=== PATIENT | female | born 1945 | race Caucasian/White ===

== ENCOUNTER → 2018-04-22 | Outpatient (CLI) | payer MEDICARE ==
[~2018-04-22] MED LIST: ASPIRIN EC81 M1; ASPIRIN325 PO; ASPIRIN81 M2 PO; ATORVASTATIN CA10 MG PO; CENTRUM SILVER1 EAC4 PO; COLACE 100 MG100 MG; CYMBALTA60 MG PO; DESYREL300 MG PO; DURAGESIC1 EAC2; FENTANYL PATCH75 MCG TP; FENTANYL PATCH75 MCG TRANSDERM; FLEXERIL PO; FOSAMAX 70 MG T70 M1 PO; FOSAMAX 70 MG T70 MG PO; GLIPIZIDE XL5 MG PO; GLUCOPHAGE500 MG PO; GLUCOTROL XL5 MG PO; GLUCOTROL5 MG PO; HYDROCODON-ACE1 EAC5 PO; HYDROXYCHLOROQ200 M1 PO; INDERAL LA 80 M80 MG PO; INDERAL80 MG PO; KEFLEX500 MG PO; LEVAQUIN 500 M500 M1 PO; LIPITOR 10 MG10 M1 PO; LIPITOR10 MG; LIPITOR10 MG PO; LYRICA150 MG PO; MEDROLDOSEPACK PO; METFORMIN HCL500 MG PO; METHOTREXA1 GM/40 M1; METHOTREXA25 MG/1 M7 INJECTION; MIRALAX255 GM; MULTI-VITAMIN1 EAC5; MULTIPLE VITAM1 EACH PO; MULTIVITAMINS PO; MYSOLINE250 M1; MYSOLINE250 M1 PO; MYSOLINE50 MG PO; NEURONTIN 300300 M1; NEURONTIN600 MG PO; NORCO 10-325 T1 EACH PO; ONDANSETRON HCL4 M2 PO; PERCOCET 5-3251 EACH PO; PHENERGAN 25 MG25 MG PO; PREDNISONE 10 M10 M1 PO; PREDNISONE 10 M10 MG PO; PRIMIDONE50 MG PO; PROTONIX40 M1 PO; PROTONIX40 M2 PO; TRAZODONE 150150 M1 PO; TYLENOL325 MG PO; VICODIN ES TAB1 EACH; ZOFRAN4 MG PO
== END ==
LOC: M.MRI 04-20 13:30
DX: M50.323 Other cervical disc degeneration at C6-C7 level (principal); M48.02 Spinal stenosis, cervical region; M25.78 Osteophyte, vertebrae; G89.4 Chronic pain syndrome

== ENCOUNTER 2018-06-30 13:56 | Emergency (ER) | payer MEDICARE ==
[~2018-06-30] VITALS: Ht 157.5 cm; Wt 74.8 kg
[2018-06-30 14:38] LABS: HEMATOCRIT 37.1 % (37.0-47.0); HEMOGLOBIN 12.1 gm/dL (12.0-15.0); MCH 31.1 pg (26.0-34.0); MCHC 32.7 g/dL (28.0-37.0); MCV 95.1 fL (80.0-100.0); MPV 7.7 fl. (7.2-11.1); NUCLEATED RBCS 0 /100WBC; PLATELET COUNT* 258 thou/uL (150-400); RDW-CV 14.3 % (10.5-14.5); WBC 13.6 thou/uL (4.0-11.0)
[2018-06-30 14:53] LABS: CREATININE 0.8 mg/dL (0.6-1.3)
[2018-06-30 14:57] LABS: ALBUMIN 3.6 g/dL (3.4-5.0); TOTAL BILIRUBIN 0.3 mg/dL (<0.1-1.0); TOTAL PROTEIN 7.4 g/dL (6.4-8.2)
[2018-06-30 15:06] LABS: URINE BILIRUBIN NEGATIVE (Negative); URINE BLOOD 1+ (Negative); URINE CLARITY CLEAR; URINE COLOR YELLOW; URINE GLUCOSE-RANDOM NEGATIVE (Negative); URINE KETONES NEGATIVE (Negative); URINE LEUKOCYTES-REFLEX NEGATIVE (Negative); URINE NITRITE-REFLEX NEGATIVE (Negative); URINE PROTEIN NEGATIVE (Negative); URINE UROBILINOGEN 0.2 E.U./dl (0.2-1.0)
[2018-06-30 15:11] LABS: ABSOLUTE LYMPHOCYTES 1.4 thou/uL (0.8-5.3); ABSOLUTE MONOCYTES 1.1 thou/uL (0.0-1.2); ABSOLUTE NEUTROPHILS 11.2 thou/uL (1.6-8.1)
[2018-06-30 15:12] LABS: PLATELET ESTIMATE ADEQUATE
[2018-06-30 15:16] LABS: CASTS None Seen /LPF (None Seen); CRYSTALS None Seen /LPF (None Seen); MUCUS None Seen strn/LPF (None Seen); SQUAMOUS 0-3 Few /LPF (0-3); URINE RBC 3-10 Few /HPF (0-2)
[2018-06-30 15:17] LABS: BACTERIA-REFLEX None Seen /HPF (None Seen); URINE WBC-REFLEX None Seen /HPF (0-5)
[2018-06-30] MEDS ORDERED: MEDROLDOSEPACK PO (17:16)
[2018-06-30 17:29] VITALS: BP 150/90
== END 2018-06-30 17:30 | disposition home or self-care (01) ==
LOC: M.ERS 13:56
PROVIDERS: Nurse Practitioner Family
DX: R51 Headache (principal); M54.5 Low back pain; R42 Dizziness and giddiness; K21.9 Gastro-esophageal reflux disease without esophagitis; E11.9 Type 2 diabetes mellitus without complications; G89.29 Other chronic pain; M54.9 Dorsalgia, unspecified; E78.5 Hyperlipidemia, unspecified; M32.9 Systemic lupus erythematosus, unspecified; F32.9 Major depressive disorder, single episode, unspecified; Z88.6 Allergy status to analgesic agent; Z88.0 Allergy status to penicillin; Z88.5 Allergy status to narcotic agent; Z88.2 Allergy status to sulfonamides

== ENCOUNTER → 2018-07-08 | Outpatient (CLI) | payer MEDICARE ==
--- NOTE | 2018-07-08 17:57 | CARDNUC ---
[place] [address] CARDIAC NUCLEAR IMAGING REPORT Name: ROGELIO MOHAN [id number] Admission: 07/08/18 Attend Phys: Talha Olson, Discharge: Date of : 49 Date of Service: 07/08/18 1757 Report #: [id number] THIS REPORT FOR: //name// APPROVED REPORT Study performed: 07/08/2018 12:45:00 Indication: chest pain Patient Location: Out-Patient Stress Tech: [facility] Stress Nurse: Leticia Yadav RN Ht: 5 ft 2 in Wt: 153 lbs BSA: 1.71 m2 BMI: 27.98 Medical History Medical History: hyperlipidemia, migraines Medications: [id number], atorvastatin, propranolol (for headaches) Allergies: augmentin, sulfa, oxycontin Cardiac Risk Factors: age, hyperlipidemia, family hx Previous Cardiac Procedures: none Exercise History: Indeterminate Resting Data Rest SPECT myocardial perfusion imaging was performed in supine position 30 minutes following the intravenous injection of 11.2 mCi of Tc-99m Sestamibi. Time of rest injection: 13:00 The images were gated to evaluate regional wall motion and calculate left ventricular ejection fraction. Administration Route: IV Administration Site: Right AC Pharmacologic Stress Pharmacologic stress test was performed by injecting Regadenoson 0.4 mg IV push over 10-15 seconds immediately followed by the intravenous injection of 35.0 mCi of Tc-99m Sestamibi. Time of stress injection: 14:25 Administration Route: IV Administration Site: Right AC Heart Rate at time of stress injection: 99 bpm. Gated Stress SPECT was performed 40 minutes after stress injection. The images were gated to evaluate regional [place] [address] CARDIAC NUCLEAR IMAGING REPORT Name: ROGELIO MOHAN Room: [facility]#: [id number] Admission: 07/08/18 Attend Phys: Talha Olson, Discharge: Date of : 49 Date of Service: 07/08/18 1757 Report #: [id number] left ventricular ejection fraction. Prone imaging was performed. Stress Test Details Stress Test: Pharmacologic stress testing performed using 0.4 mg of regadenoson per 5 mL given IV over 10 seconds. Reason for pharmacologic stress test: physical limitation. HR Max Heart Rate (APMHR): 149 bpm Resting HR: 87 bpm Target HR (85% APMHR): 126 bpm Max HR Achieved: 99 bpm % of APMHR: 66 Recovery HR: 101 bpm BP Resting BP: 117/67 mmHg Recovery BP: 128/60 mmHg ECG Resting ECG: Sinus Rhythm, normal EKG Stress ECG: Sinus Tachycardia ST Change: None Arrhythmia: None Recovery ECG: Sinus Rhythm, normal EKG Recovery ST Change: None Recovery Arrhythmia: None Clinical Reason for Termination: Completed protocol Exercise duration: 0 min sec Exercise capacity: 1 METs The patient tolerated Lexiscan infusion without significant symptoms. Nurse Comments pt using cane to walk Stress ECG Conclusion The baseline 12-lead EKG shows sinus rhythm with no significant ST or T wave abnormality. EKGs obtained during and post Lexiscan infusion show sinus rhythm and sinus tachycardia with no significant ST or T wave changes when compared to baseline. There were no stress-induced arrhythmias. Study Quality Study: [place] [address] CARDIAC NUCLEAR IMAGING REPORT Name: ROGELIO MOHAN Room: [facility]#: [id number] Admission: 07/08/18 Attend Phys: Talha Olson, Discharge: Date of : 49 Date of Service: 07/08/18 1757 Report #: [id number] Artifact: No artifact Study Data At rest, the left ventricular ejection fraction was 89%.. Post stress, the left ventricular ejection was 85%.. TID = 1.18. Perfusion Normal left ventricular perfusion. Wall Motion Normal left ventricular wall motion. Nuclear Conclusion ECG Findings: negative for ischemia Clinical Findings: negative for ischemia Nuclear Findings: negative for ischemia Exercise Capacity: not assessed Left Ventricular Function: normal Risk Study: low Myocardial perfusion images show no defect to suggest infarct or ischemia. Left ventricular systolic function is normal on gated studies. This is a low risk study. <Conclusion> The baseline 12-lead EKG shows sinus rhythm with no significant ST or T wave abnormality. EKGs obtained during and post Lexiscan infusion show sinus rhythm and sinus tachycardia with no significant ST or T wave changes when compared to baseline. There were no stress-induced arrhythmias. <ELECTRONICALLY SIGNED> By: Tr Joe MD, FACC 07/08/181756 56 56 Tr Joe MD, FACC /INF
== END ==
LOC: M.NUC 05-27 14:14 → M.CRD 06-18 13:00 → M.NUC 06-18 13:00
DX: E11.9 Type 2 diabetes mellitus without complications (principal); G43.009 Migraine without aura, not intractable, without status migrainosus; R25.9 Unspecified abnormal involuntary movements; R07.9 Chest pain, unspecified

== ENCOUNTER → 2018-07-16 | Outpatient (CLI) | payer MEDICARE | LOC: M.RAD 10:48 | DX: Z12.31 Encounter for screening mammogram for malignant neoplasm of breast (principal) ==

== ENCOUNTER → 2018-07-21 | Outpatient (CLI) | payer MEDICARE | LOC: M.ULTRA 16:30 | DX: J02.9 Acute pharyngitis, unspecified (principal) ==

== ENCOUNTER → 2018-11-26 | Outpatient (CLI) | payer MEDICARE | LOC: M.MRI 11-24 11:30 | DX: M47.816 Spondylosis without myelopathy or radiculopathy, lumbar region (principal); M51.26 Other intervertebral disc displacement, lumbar region; M96.1 Postlaminectomy syndrome, not elsewhere classified; M43.27 Fusion of spine, lumbosacral region; M71.38 Other bursal cyst, other site; Z68.28 Body mass index [BMI] 28.0-28.9, adult ==

== ENCOUNTER → 2019-08-18 | Outpatient (CLI) | payer MEDICARE | LOC: M.RAD 15:21 | DX: J98.11 Atelectasis (principal); M19.011 Primary osteoarthritis, right shoulder; M47.816 Spondylosis without myelopathy or radiculopathy, lumbar region; M41.86 Other forms of scoliosis, lumbar region; M43.22 Fusion of spine, cervical region; Z88.8 Allergy status to other drugs, medicaments and biological substances; Z88.2 Allergy status to sulfonamides ==

== ENCOUNTER → 2020-03-07 | Outpatient (CLI) | payer MEDICARE | LOC: M.RAD 10:40 | PROVIDERS: ATTEND Internal Medicine | DX: N64.4 Mastodynia (principal); E11.9 Type 2 diabetes mellitus without complications; G43.009 Migraine without aura, not intractable, without status migrainosus; G58.9 Mononeuropathy, unspecified ==

== ENCOUNTER 2020-04-13 18:28 | Observation (INO) | payer MEDICARE ==
[~2020-04-13] VITALS: Ht 157.5 cm; Wt 75.8 kg
[2020-04-13 18:55] VITALS: BP 142/64
[2020-04-13] MEDS ORDERED: MELOXICAM15 MG PO (18:59)
[2020-04-13] MEDS ORDERED: BUPROPION XL300 MG PO (18:59)
[2020-04-13] MEDS ORDERED: XANAX 0.5 MG0.5 MG PO (19:00)
[2020-04-13] MEDS ORDERED: PRED FORTE 1% EY5 M1 OPHTHALMIC (19:00)
[2020-04-13] MEDS ORDERED: HYDROCHLOROTHIA25 M1 PO (19:00)
[2020-04-13] MEDS ORDERED: VITAMIN D310 MC2 PO (19:01)
[2020-04-13] MEDS ORDERED: CALCIUM500 MG PO (19:01)
[2020-04-13] MEDS ORDERED: GLUCOSAMINE H1500 MG PO (19:01)
[2020-04-13 19:43] LABS: ABSOLUTE BASOPHILS 0.1 thou/uL (0.0-0.2); ABSOLUTE EOSINOPHILS 0.4 thou/uL (0.0-0.7); ABSOLUTE LYMPHOCYTES 1.1 thou/uL (0.8-5.3); ABSOLUTE MONOCYTES 0.6 thou/uL (0.0-1.2); ABSOLUTE NEUTROPHILS 3.2 thou/uL (1.6-8.1); BASOPHILS 1.3 %; EOSINOPHILS 6.6 %; HEMATOCRIT 36.8 % (37.0-47.0); HEMOGLOBIN 12.1 gm/dL (12.0-15.0); LYMPHOCYTES 20.9 %; MCH 30.9 pg (26.0-34.0); MCV 93.8 fL (80.0-100.0); MONOCYTES 10.9 %; MPV 7.9 fl. (7.2-11.1); NUCLEATED RBCS 0 /100WBC; PLATELET COUNT* 242 thou/uL (150-400); POLYS 60.3 %; RBC 3.92 mil/uL (4.20-5.00); RDW-CV 14.3 % (10.5-14.5); WBC 5.4 thou/uL (4.0-11.0)
[2020-04-13 19:52] LABS: CALCIUM 8.3 mg/dL (8.5-10.1); CREATININE 0.9 mg/dL (0.6-1.3); POTASSIUM 4.1 mmol/L (3.5-5.1)
[2020-04-13 20:02] LABS: ALBUMIN 3.5 g/dL (3.4-5.0); TOTAL BILIRUBIN 0.2 mg/dL (<0.1-1.0); TOTAL PROTEIN 6.7 g/dL (6.4-8.2)
[2020-04-13 21:11] LABS: URINE BILIRUBIN NEGATIVE (Negative); URINE BLOOD NEGATIVE (Negative); URINE CLARITY CLEAR; URINE COLOR YELLOW; URINE GLUCOSE-RANDOM NEGATIVE (Negative); URINE KETONES NEGATIVE (Negative); URINE LEUKOCYTES-REFLEX NEGATIVE (Negative); URINE NITRITE-REFLEX NEGATIVE (Negative); URINE PROTEIN NEGATIVE (Negative); URINE SPECIFIC GRAVITY >= 1.030 (1.005-1.030); URINE UROBILINOGEN 0.2 E.U./dl (0.2-1.0)
[2020-04-13 23:23] VITALS: BP 151/78
--- NOTE | 2020-04-14 09:21 | EKG ---
[place] [address] ELECTROCARDIOGRAM REPORT Name: MOHANERINROGELIO D Room: [address] M.R.#: [id number] Admission: 04/13/20 Attend Phys: Jason Garcia, Discharge: Date of : 49 Date of Service: 04/13/20 1854 Report #: [id number] THIS REPORT FOR: //name// [facility] ED Test Date: 2020-04-13 Test Time: 18:54:30 Pat Name: ROGELIO MOHAN Department: Room: [facility] Gender: F Medical Claims Analyst: BRENDON : 1945 Requested By: Brady Hodges Order Number: [id number] MD: Juancho Lincoln Measurements Intervals [place] Rate: 77 P: 51 AK: 145 QRS: 5 QRSD: 90 T: 38 QT: 392 QTc: 444 Interpretive Statements Sinus rhythm Abnormal R-wave progression, early transition Compared to ECG 11/01/2014 09:34:11 No significant changes Electronically Signed On 04-14-2020 9:21:31 CDT by Juancho Lincoln [email or web address] <ELECTRONICALLY SIGNED> By: Jaswant Lincoln MD, [facility] 04/14/20 0921 53 53 Jaswant Lincoln MD, [facility] /EPI
== END 2020-04-13 23:59 | disposition left against medical advice (07) ==
LOC: M.ERS 18:28 → M.TBA-ER 22:19
PROVIDERS: Physician Assistant; ADMIT Internal Medicine; ATTEND Internal Medicine
DX: R10.30 Lower abdominal pain, unspecified (principal); R11.2 Nausea with vomiting, unspecified; K59.00 Constipation, unspecified; M54.2 Cervicalgia; M54.5 Low back pain; G89.29 Other chronic pain; F32.9 Major depressive disorder, single episode, unspecified; K21.9 Gastro-esophageal reflux disease without esophagitis; E78.5 Hyperlipidemia, unspecified; E11.9 Type 2 diabetes mellitus without complications; Z86.73 Personal history of transient ischemic attack (TIA), and cerebral infarction without residual deficits

== ENCOUNTER 2020-06-11 11:04 | Emergency (ER) | payer MEDICARE ==
[~2020-06-11] VITALS: Ht 157.5 cm; Wt 74.8 kg
[~2020-06-11 11:04] MED LIST changes: +BUPROPION XL300 MG PO; +CALCIUM500 MG PO; +GLUCOSAMINE H1500 MG PO; +HYDROCHLOROTHIA25 M1 PO; +MELOXICAM15 MG PO; +PRED FORTE 1% EY5 M1 OPHTHALMIC; +VITAMIN D310 MC2 PO; +XANAX 0.5 MG0.5 MG PO
[2020-06-11] MEDS ORDERED: ZANAFLEX4 MG PO (14:32)
[2020-06-11] MEDS ORDERED: MEDROLDOSEPACK PO (14:32)
[2020-06-11 14:38] VITALS: BP 158/73
== END 2020-06-11 14:39 | disposition home or self-care (01) ==
LOC: M.ERS 11:04
DX: S16.1XXA Strain of muscle, fascia and tendon at neck level, initial encounter (principal); S39.012A Strain of muscle, fascia and tendon of lower back, initial encounter; S50.02XA Contusion of left elbow, initial encounter; S80.01XA Contusion of right knee, initial encounter; G56.22 Lesion of ulnar nerve, left upper limb; R51 Headache; I10 Essential (primary) hypertension; E78.5 Hyperlipidemia, unspecified; G89.29 Other chronic pain; Z88.0 Allergy status to penicillin; Z88.2 Allergy status to sulfonamides; Z88.5 Allergy status to narcotic agent; Z88.6 Allergy status to analgesic agent; Z90.49 Acquired absence of other specified parts of digestive tract; Z90.710 Acquired absence of both cervix and uterus; W01.0XXA Fall on same level from slipping, tripping and stumbling without subsequent striking against object, initial encounter; Y93.89 Activity, other specified; Y92.89 Other specified places as the place of occurrence of the external cause; Y99.8 Other external cause status